=== PATIENT | male | born 1970 | race Caucasian/White ===

== ENCOUNTER 2017-10-21 09:08 | Inpatient (IN) | payer OTHER ==
[2017-10-21 09:44] VITALS: BMI 25.7
--- NOTE | 2017-10-21 09:58 | HP ---
CIWA Score - CIWA Score Nausea/Vomitin-Mild Nausea/No Vomiting Muscle Tremors: 4-Moderate,w/Arms Extend Anxiety: 4-Mod. Anxious/Guarded Agitation: 1-Slight > Activity Paroxysmal Sweats: 1-Minimal Palms Moist Orientation: 1-Uncertain about Date Tacttile Disturbances: 1-Very Mild Itch/Numbness Auditory Disturbances: 0-None Visual Disturbances: 0-None Headache: 1-Very Mild CIWA-Ar Total Score: 14 Admission ROS S - HPI Chief Complaint: I want detox, I don't want to drink anymore Allergies/Adverse Reactions: Allergies Allergy/AdvReac Type Severity Reaction Status Date / Time No Known Allergies Allergy Verified 10/21/17 10:12 History of Present Illness: 47 yo gentleman here for detox from alcohol. States he fell yesterday and was in [place] ED, xrayed and sent for detox. No seizures, does black outs. States he was in [facility] rehab for 28 days june 2017. Does not remember being here for several days in 2014. Exam Limitations: Clinical Condition - Ebola screening Have you traveled outside of the country in the last 21 days: No (N) Have you had contact with anyone from an Ebola affected area: No Have you been sick,other than usual withdrawal symptoms: No Do you have a fever: No - Review of Systems Constitutional: Loss of Appetite, Night Sweats, Changes in sleep, Weakness EENT: reports: Blurred Vision Respiratory: reports: No Symptoms reported Cardiac: reports: No Symptoms Reported GI: reports: No Symptoms Reported : reports: Frequency Musculoskeletal: reports: Back Pain, Muscle Pain Integumentary: reports: Dryness Neuro: reports: Headache, Tremors Endocrine: reports: No Symptoms Reported Hematology: reports: No Symptoms Reported Psychiatric: reports: Judgement Intact, Mood/Affect Appropiate, Anxious Other Systems: Reviewed and Negative Patient History - Patient Medical History Hx Anemia: No Hx Asthma: No Hx Chronic Obstructive Pulmonary Disease (COPD): No Hx Cancer: No Hx Cardiac Disorders: Yes (history of a fib) Hx Congestive Heart Failure: No Hx Hypertension: Yes (non adherent to medication) Hx Hypercholesterolemia: No Hx Pacemaker: No HX Cerebrovascular Accident: No Hx Seizures: No Hx Dementia: No Hx Diabetes: No Hx Gastrointestinal Disorders: No Hx Liver Disease: No Hx Genitourinary Disorders: No Hx Sexually Transmitted Disorders: No Hx Renal Disease (ESRD): No Hx Thyroid Disease: No Hx Human Immunodeficiency Virus (HIV): No Hx Hepatitis C: No Hx Depression: No (anxiety, insomnia) Hx Suicide Attempt: No Hx Bipolar Disorder: No Hx Schizophrenia: No Other Medical History: back pain, neuropathy - Patient Surgical History Past Surgical History: Yes Hx Neurologic Surgery: No Hx Cataract Extraction: No Hx Cardiac Surgery: No Hx Lung Surgery: No Hx Breast Surgery: No Hx Breast Biopsy: No Hx Abdominal Surgery: Yes (bilateral hernia age 10) Hx Appendectomy: No Hx Cholecystectomy: No Hx Genitourinary Surgery: No Hx Section: No Hx Orthopedic Surgery: Yes ([employer] [place] [facility] PROCEDURE, metal rods in back 1994) Other Surgical History: lazy eye surgery age 2 Anesthesia Reaction: No - PPD History Previous Implant?: Yes Documented Results: Negative w/proof Date: 07/30/15 PPD to be Administered?: Yes - Reproductive History Patient is a Female of Child Bearing Age (11 -55 yrs old): No (male) - Smoking Cessation Smoking history: Never smoked Have you smoked in the past 12 months: No Initiated information on smoking cessation: No - Substance & Tx. History Hx Alcohol Use: Yes Hx Substance Use: No Substance Use Type: Alcohol Hx Substance Use Treatment: Yes (detox, rehab) - Substances Abused Alcohol Route: Oral Frequency: Daily Amount used: eight 24 oz beers Age of first use: 15 Date of Last Use: 10/20/17 Family Disease History - Family Disease History Family Disease History: Heart Disease: Father (, HTN,ALCOHOLIC), Mother (, ALCOHOLIC), CA: Mother, Sister (, COLON), Other: Father, Mother, Son (two - no contact for 10 years) Admission Physical Exam S - Vital Signs Vital Signs: Vital Signs - 24 hr 10/21/17 09:39 Temperature 96.9 F L Pulse Rate 86 Respiratory 18 Rate Blood Pressure 146/83 - Physical General Appearance: Yes: Nourished, Appropriately Dressed, Moderate Distress, Anxious HEENTM: Yes: Hearing grossly Normal, Normocephalic, Normal Voice, Pharynx Normal Respiratory: Yes: Normal Breath Sounds, No Respiratory Distress Neck: Yes: No masses,lesions,Nodules, Supple Breast: Yes: Breast Exam Deferred Cardiology: Yes: Regular Rhythm, Regular Rate Abdominal: Yes: Flat, Soft Genitourinary: Yes: Frequency Back: Yes: Decreased Range of Motion, Surgical Scar Musculoskeletal: Yes: full range of Motion, Gait Steady Extremities: Yes: Normal Range of Motion, Other (mild lower extremity edema with hyperpigmentation) Neurological: Yes: Fully Oriented, Alert, Motor Strength 5/5, Normal Mood/Affect , Normal Response, Numbness Integumentary: Yes: Dry, Warm Lymphatic: Yes: Within Normal Limits - Diagnostic (1) Uncomplicated alcohol dependence Current Visit: Yes Status: Chronic Comment: . (2) History of atrial fibrillation Current Visit: Yes Status: Suspected Comment: . (3) Back pain Current Visit: Yes Status: Chronic Qualifiers: Back pain location: low back pain Chronicity: chronic Back pain laterality: bilateral Sciatica presence: without sciatica Qualified Code(s) : M54.5 - Low back pain; G89.29 - Other chronic pain; G89.29 - Other chronic pain Comment: . Cleared for Admission [facility] - Detox or Rehab [facility] Level of Care: Medically Managed Detox Regimen/Protocol: Librium [facility] Breath Alcohol Content Breath Alcohol Content: 0 Urine Drug Screen - Results Drug Screen Negative: Yes
[2017-10-21] MEDS ORDERED: LOPERAMIDE HCL 2 MG CAPSULE PO PRN (10:11)
[2017-10-21] MEDS ORDERED: MAG HYDROX/AL HYDROX/SIMETH 30 ML UNIT-DOSE CUP PO PRN (10:11)
[2017-10-21] MEDS ORDERED: ACETAMINOPHEN 325 MG TABLET (FP) PO PRN (10:11)
[2017-10-21] MEDS ORDERED: P-EPHED 60MG/TRIPROLIDI 2.5MG TABLET PO PRN (10:11)
[2017-10-21] MEDS ORDERED: MENTHOL/PHENOL 1 EACH UD MM PRN (10:11)
[2017-10-21] MEDS ORDERED: IBUPROFEN 400 MG TABLET (FP) PO PRN (10:11)
[2017-10-21] MEDS ORDERED: hydrOXYzine PAMOATE 50 MG CAPSULE (FP) PO PRN (10:11)
[2017-10-21] MEDS ORDERED: MAGNESIUM CITRATE 300 ML BOTTLE PO PRN (10:11)
[2017-10-21] MEDS ORDERED: chlordiazePOXIDE HCL 25 MG CAPSULE PO PRN (10:11)
[2017-10-21] MEDS ORDERED: guaiFENesin/D-METHORPHAN HB 10 ML UNIT-DOSE CUPS PO PRN (10:11)
[2017-10-21] MEDS ORDERED: MAGNESIUM HYDROX 2400MG/30ML ORAL SUSPENSION 30 ML CUP PO PRN (10:11)
[2017-10-21] MEDS ORDERED: chlordiazePOXIDE HCL 25 MG CAPSULE PO ONE (12:00)
[2017-10-21] MEDS: GABAPENTIN 300 MG CAPSULE (FP) PO SCH ×2 (12:57→17:43)
[2017-10-21] MEDS: METHYL SALICYLATE/MENTHOL OINT 30 GM TUBE TP SCH ×2 (13:03→23:02)
--- NOTE | 2017-10-21 15:16 | EKG ---
Test Reason : Blood Pressure : / mmHG Vent. Rate : 066 BPM Atrial Rate : 066 BPM P-R Int : 120 ms QRS Dur : 104 ms QT Int : 406 ms P-R-T Axes : 045 073 063 degrees QTc Int : 425 ms NORMAL SINUS RHYTHM WITH SINUS ARRHYTHMIA MINIMAL VOLTAGE CRITERIA FOR LVH, MAY BE NORMAL VARIANT BORDERLINE ECG NO PREVIOUS ECGS AVAILABLE Confirmed by Marbin Whitney ([id number]) on 10/21/2017 3:16:07 PM Referred By: Confirmed By:Marbin Whitney
[2017-10-21] MEDS: chlordiazePOXIDE HCL 25 MG CAPSULE PO SCH ×2 (17:43→23:02)
--- NOTE | 2017-10-21 17:51 | CONSULT ---
[facility] Psychiatric Consult - Data Date of interview: 10/21/17 Admission source: [facility] Identifying data: Pt. is a 47 year old male, , father of two, unemployed , and currently living in a homeless assisted. This is patient[facility]. Pt. admitted to for detox from alcohol dependence. Substance Abuse History: Substance & Tx. History. Hx Alcohol Use: Yes. Hx Substance Use: No. Substance Use Type: Alcohol. Hx Substance Use Treatment: Yes (detox, rehab). - Substances Abused. Alcohol. Route: Oral. Frequency : Daily. Amount used: eight 24 oz beers. Age of first use: 15. Date of Last Use: 10/20/17 Medical History: Hypertension Psychiatric History: Pt. denies h/o psychiatric hospitalizations and suicide attempts. Pt. reports seeing an outpatient psychiatrist at the assisted he currently resides in. Diagnosed unknown and states he is prescribed vistaril for sleep which patient states is ineffective and gapabentin for pain. Pt. denies suicidal and homicidal ideation. Physical/Sexual Abuse/Trauma History: Denies. Mental Status Exam - Mental Status Exam Alert and Oriented to: Time, Place Cognitive Function: Good Patient Appearance: Well Groomed Mood: Hopeful Affect: Mood Congruent Patient Behavior: Talkative, Cooperative Speech Pattern: Appropriate Voice Loudness: Normal Thought Process: Goal Oriented Thought Disorder: Not Present Hallucinations: Denies Suicidal Ideation: Denies Homicidal Ideation: Denies Insight/Judgement: Poor Sleep: Poorly Appetite: Fair Muscle strength/Tone: Normal Gait/Station: Normal Psychiatric Findings - Problem List ([place] 1, 2,3) (1) Uncomplicated alcohol dependence Current Visit: Yes Status: Acute Comment: . (2) Insomnia Current Visit: Yes Status: Acute - Initial Treatment Plan Initial Treatment Plan: Psychoeducation provided. Detoxification in progress. Ambien 10mg qhs PRN ordered. Benefits and side effects (sleep walking) discussed. Pt reports favorable effect from previously taking ambien. Verbal consent given. Will continue to monitor.
[2017-10-21 19:46] LABS: URINE APPEARANCE CLEAR; URINE BILIRUBIN NEGATIVE (NEGATIVE); URINE BLOOD NEGATIVE (NEGATIVE); URINE COLOR YELLOW; URINE GLUCOSE (UA) NEGATIVE (NEGATIVE); URINE KETONE 2+ (NEGATIVE); URINE LEUK ESTERASE NEGATIVE (NEGATIVE); URINE NITRITE NEGATIVE (NEGATIVE)
[2017-10-21 19:50] LABS: URINE PROTEIN 1+ (NEGATIVE)
[2017-10-21 19:54] LABS: URINE MUCUS FEW
[2017-10-21] MEDS: ZOLPIDEM TARTRATE 5 MG TABLET PO PRN (23:01)
[2017-10-21] MEDS: THIAMINE HCL 100 MG TABLET (FP) PO SCH (23:02)
[2017-10-22] MEDS: chlordiazePOXIDE HCL 25 MG CAPSULE PO SCH ×4 (05:28→22:37)
[2017-10-22] MEDS: GABAPENTIN 300 MG CAPSULE (FP) PO SCH ×3 (05:30→22:33)
[2017-10-22 10:25] LABS: HEMATOCRIT 39.7 % (35.4-49); HEMOGLOBIN 12.4 GM/dL (11.7-16.9); MCH 25.3 pg (25.7-33.7); MCHC 31.2 g/dl (32.0-35.9); MEAN CELL VOLUME 81.2 fl (80-96); MEAN PLT VOLUME 8.6 fl (7.5-11.1); PLATELET COUNT 151 K/MM3 (134-434); RBC 4.89 M/mm3 (4.00-5.60); RDW 17.2 % (11.9-15.9); WHITE BLOOD COUNT 4.5 K/mm3 (4.0-10.0)
[2017-10-22] MEDS: METHYL SALICYLATE/MENTHOL OINT 30 GM TUBE TP SCH ×2 (10:28→22:32)
[2017-10-22] MEDS: PRENATAL VITAMINS W/ FOLIC ACID TABLET (FP) PO SCH (10:28)
[2017-10-22] MEDS: METOPROLOL SUCCINATE 25 MG TAB.SR.24H (FP) PO SCH (10:28)
[2017-10-22 10:37] LABS: ALBUMIN 4.3 g/dl (3.4-5.0); ANION GAP 7 (8-16); BLOOD UREA NITROGEN 11 mg/dL (7-18); CALCIUM 8.9 mg/dL (8.5-10.1); CHLORIDE 96 mmol/L (98-107); CO2 31 mmol/L (21-32); GLUCOSE,RANDOM 133 mg/dL (74-106); POTASSIUM 3.7 mmol/L (3.5-5.1); SODIUM 134 mmol/L (136-145)
[2017-10-22 10:40] LABS: ALK PHOS 108 U/L (45-117); BILIRUBIN,TOTAL 1.1 mg/dL (0.2-1.0); CREATININE 0.9 mg/dL (0.7-1.3); SGOT/AST 55 U/L (15-37); SGPT/ALT 36 U/L (12-78); TOT PROT 8.2 g/dl (6.4-8.2)
--- NOTE | 2017-10-22 15:19 | PN ---
[facility] CIWA - CIWA Score Nausea/Vomitin-No Nausea/No Vomiting Muscle Tremors: 4-Moderate,w/Arms Extend Anxiety: 4-Mod. Anxious/Guarded Agitation: 4-Moderately Restless Paroxysmal Sweats: 3 Orientation: 0-Oriented Tacttile Disturbances: 1-Very Mild Itch/Numbness Auditory Disturbances: 0-None Visual Disturbances: 0-None Headache: 0-None Present CIWA-Ar Total Score: 16 S Progress Note (SOAP) Subjective: Tremor, back pain, anxious, restless. Patient requesting to be discharged on stating he has an ophthalmology appt on 10/24 in the afternoon and has PCP appt on 10/25. He is willing to adjust his librium protocol. Objective: 10/22/17 15:18 Last Vital Signs Temp Pulse Resp BP Pulse Ox 96.3 F L 87 20 159/91 10/22/17 13:17 10/22/17 13:17 10/22/17 13:17 10/22/17 13:17 Laboratory Tests 10/21/17 10/22/17 10/22/17 19:45 07:40 07:40 WBC 4.5 RBC 4.89 D Hgb 12.4 Hct 39.7 MCV 81.2 MCH 25.3 L D MCHC 31.2 L RDW 17.2 H D Plt Count 151 D MPV 8.6 Sodium 134 L Potassium 3.7 Chloride 96 L Carbon Dioxide 31 Anion Gap 7 L BUN 11 Creatinine 0.9 D Creat Clearance w eGFR > 60 Random Glucose 133 H D Calcium 8.9 Total Bilirubin 1.1 H D AST 55 H D ALT 36 Alkaline Phosphatase 108 D Total Protein 8.2 D Albumin 4.3 Urine Color Yellow Urine Appearance Clear Urine pH 7.0 Ur Specific [place] 1.023 Urine Protein 1+ H Urine Glucose (UA) Negative Urine Ketones 2+ H Urine Blood Negative Urine Nitrite Negative Urine Bilirubin Negative Urine Urobilinogen 2.0 Ur Leukocyte Esterase Negative Urine WBC (Auto) 1 Urine RBC (Auto) <1 Urine Mucus Few RPR Titer 10/22/17 07:40 WBC RBC Hgb Hct MCV MCH MCHC RDW Plt Count MPV Sodium Potassium Chloride Carbon Dioxide Anion Gap BUN Creatinine Creat Clearance w eGFR Random Glucose Calcium Total Bilirubin AST ALT Alkaline Phosphatase Total Protein Albumin Urine Color Urine Appearance Urine pH Ur Specific [place] Urine Protein Urine Glucose (UA) Urine Ketones Urine Blood Urine Nitrite Urine Bilirubin Urine Urobilinogen Ur Leukocyte Esterase Urine WBC (Auto) Urine RBC (Auto) Urine Mucus RPR Titer Nonreactive Labs noted: serum glucose 133 Assessment: 10/22/17 15:19 Withdrawal symptoms Noted with hyperglycemia Plan: Continue detox Hyperglycemia: repeat fasting glucose, send HbA1c
[2017-10-22] MEDS: THIAMINE HCL 100 MG TABLET (FP) PO SCH (22:33)
[2017-10-22] MEDS: ZOLPIDEM TARTRATE 5 MG TABLET PO PRN (22:36)
[2017-10-22] MEDS: LIDOCAINE PATCH REMOVAL MC SCH (22:44)
[2017-10-23] MEDS: chlordiazePOXIDE HCL 25 MG CAPSULE PO SCH (06:17)
[2017-10-23] MEDS: GABAPENTIN 300 MG CAPSULE (FP) PO SCH ×3 (06:18→22:37)
[2017-10-23] MEDS ORDERED: LIDOCAINE 5% TOPICAL PATCH TP SCH (10:00)
[2017-10-23] MEDS: METHYL SALICYLATE/MENTHOL OINT 30 GM TUBE TP SCH ×2 (10:55→22:36)
[2017-10-23] MEDS: PRENATAL VITAMINS W/ FOLIC ACID TABLET (FP) PO SCH (10:55)
[2017-10-23] MEDS: chlordiazePOXIDE 5 MG CAPSULE PO SCH ×3 (10:57→22:36)
[2017-10-23] MEDS: METOPROLOL SUCCINATE 25 MG TAB.SR.24H (FP) PO SCH (10:57)
--- NOTE | 2017-10-23 12:32 | PN ---
[facility] CIWA - CIWA Score Nausea/Vomitin-No Nausea/No Vomiting Muscle Tremors: 2 Anxiety: 4-Mod. Anxious/Guarded Agitation: 4-Moderately Restless Paroxysmal Sweats: 1-Minimal Palms Moist Orientation: 0-Oriented Tacttile Disturbances: 2-Mild Itch/Numbness/Burn Auditory Disturbances: 2-Mild Harshness/Frighten Visual Disturbances: 0-None Headache: 0-None Present CIWA-Ar Total Score: 15 S Progress Note (SOAP) Subjective: Interrupted Sleep, Body Aches, Anxious. Objective: PT. A & O X 3, OBSERVED AMBULATING ON UNIT. NO ACUTE DISTRESS. 10/23/17 12:30 Vital Signs Temperature 97.1 F L 10/23/17 09:36 Pulse Rate 86 10/23/17 09:36 Respiratory Rate 18 10/23/17 09:36 Blood Pressure 149/97 10/23/17 09:36 O2 Sat by Pulse Oximetry (%) Laboratory Tests 10/21/17 10/22/17 10/22/17 19:45 07:40 07:40 WBC 4.5 RBC 4.89 D Hgb 12.4 Hct 39.7 MCV 81.2 MCH 25.3 L D MCHC 31.2 L RDW 17.2 H D Plt Count 151 D MPV 8.6 Sodium 134 L Potassium 3.7 Chloride 96 L Carbon Dioxide 31 Anion Gap 7 L BUN 11 Creatinine 0.9 D Creat Clearance w eGFR > 60 Random Glucose 133 H D Fasting Glucose Hemoglobin A1c % Calcium 8.9 Total Bilirubin 1.1 H D AST 55 H D ALT 36 Alkaline Phosphatase 108 D Total Protein 8.2 D Albumin 4.3 Urine Color Yellow Urine Appearance Clear Urine pH 7.0 Ur Specific [place] 1.023 Urine Protein 1+ H Urine Glucose (UA) Negative Urine Ketones 2+ H Urine Blood Negative Urine Nitrite Negative Urine Bilirubin Negative Urine Urobilinogen 2.0 Ur Leukocyte Esterase Negative Urine WBC (Auto) 1 Urine RBC (Auto) <1 Urine Mucus Few RPR Titer 10/22/17 10/23/17 10/23/17 07:40 07:00 07:00 WBC RBC Hgb Hct MCV MCH MCHC RDW Plt Count MPV Sodium Potassium Chloride Carbon Dioxide Anion Gap BUN Creatinine Creat Clearance w eGFR Random Glucose Fasting Glucose 88 Hemoglobin A1c % 5.4 Calcium Total Bilirubin AST ALT Alkaline Phosphatase Total Protein Albumin Urine Color Urine Appearance Urine pH Ur Specific [place] Urine Protein Urine Glucose (UA) Urine Ketones Urine Blood Urine Nitrite Urine Bilirubin Urine Urobilinogen Ur Leukocyte Esterase Urine WBC (Auto) Urine RBC (Auto) Urine Mucus RPR Titer Nonreactive LABS NOTED. Assessment: 10/23/17 12:30 WITHDRAWAL SYMPTOMS. Plan: CONTINUE DETOX.
[2017-10-23] MEDS ORDERED: chlordiazePOXIDE 5 MG CAPSULE PO SCH (17:00)
[2017-10-23] MEDS ORDERED: IBUPROFEN 400 MG TABLET (FP) PO PRN (19:17)
--- NOTE | 2017-10-23 19:21 | PN ---
[facility] Progress Note Note: received nurse called that the patient refuses librium 15 mg x 1 dose today
[2017-10-23] MEDS: THIAMINE HCL 100 MG TABLET (FP) PO SCH (22:35)
[2017-10-23] MEDS: ZOLPIDEM TARTRATE 5 MG TABLET PO PRN (22:35)
[2017-10-23] MEDS: LIDOCAINE PATCH REMOVAL MC SCH (22:36)
[2017-10-24] MEDS ORDERED: chlordiazePOXIDE HCL 10 MG CAPSULE PO SCH ×2 (05:00→17:00)
[2017-10-24] MEDS: GABAPENTIN 300 MG CAPSULE (FP) PO SCH (06:29)
[2017-10-24 09:17] VITALS: BP 151/81; PULSE 103; TEMP 96.2
--- NOTE | 2017-10-24 14:10 | DS ---
[facility] Detox Discharge Summary Admission Date: 10/21/17 Discharge Date: 10/24/17 - History Present History: Alcohol Dependence Additional Comments: PATIENT GOING TO [facility] ([place], [place] FOR AFTERCARE. PATIENT ALSO ADVISED TO FOLLOW-UP AFTER DISCHARGE FROM DETOX WITH [employer]UNDROM[employer] WORKER DR. Johnny JEFFREY ([facility]) FOR GENERAL MEDICAL ASSESSMENT AND FOR HISTORY OF HTN AND A-FIB. PATIENT WAS DISCHARGED FROM DETOX UNIT IN STABLE MEDICAL CONDITION. Pertinent Past History: HTN, History of A-Fib, Anxiety, Back Pain, Insomnia. - Physical Exam Results Vital Signs: Vital Signs Temperature 96.2 F L 10/24/17 09:16 Pulse Rate 103 H 10/24/17 09:16 Respiratory Rate 18 10/24/17 09:16 Blood Pressure 151/81 10/24/17 09:16 O2 Sat by Pulse Oximetry (%) Pertinent Admission Physical Exam Findings: WITHDRAWAL SYMPTOMS. Laboratory Tests 10/21/17 10/22/17 10/22/17 19:45 07:40 07:40 WBC 4.5 RBC 4.89 D Hgb 12.4 Hct 39.7 MCV 81.2 MCH 25.3 L D MCHC 31.2 L RDW 17.2 H D Plt Count 151 D MPV 8.6 Sodium 134 L Potassium 3.7 Chloride 96 L Carbon Dioxide 31 Anion Gap 7 L BUN 11 Creatinine 0.9 D Creat Clearance w eGFR > 60 Random Glucose 133 H D Fasting Glucose Hemoglobin A1c % Calcium 8.9 Total Bilirubin 1.1 H D AST 55 H D ALT 36 Alkaline Phosphatase 108 D Total Protein 8.2 D Albumin 4.3 Urine Color Yellow Urine Appearance Clear Urine pH 7.0 Ur Specific [place] 1.023 Urine Protein 1+ H Urine Glucose (UA) Negative Urine Ketones 2+ H Urine Blood Negative Urine Nitrite Negative Urine Bilirubin Negative Urine Urobilinogen 2.0 Ur Leukocyte Esterase Negative Urine WBC (Auto) 1 Urine RBC (Auto) <1 Urine Mucus Few RPR Titer 10/22/17 10/23/17 10/23/17 07:40 07:00 07:00 WBC RBC Hgb Hct MCV MCH MCHC RDW Plt Count MPV Sodium Potassium Chloride Carbon Dioxide Anion Gap BUN Creatinine Creat Clearance w eGFR Random Glucose Fasting Glucose 88 Hemoglobin A1c % 5.4 Calcium Total Bilirubin AST ALT Alkaline Phosphatase Total Protein Albumin Urine Color Urine Appearance Urine pH Ur Specific [place] Urine Protein Urine Glucose (UA) Urine Ketones Urine Blood Urine Nitrite Urine Bilirubin Urine Urobilinogen Ur Leukocyte Esterase Urine WBC (Auto) Urine RBC (Auto) Urine Mucus RPR Titer Nonreactive LABS NOTED. - Treatment Hospital Course: Detox Protocol Followed, Detoxed Safely, Responded well, Discharged Condition Good Patient has Accepted a Rehab Referral to: PATIENT GOING TO [facility] ([place], [place]). - Medication Discharge Medications: Ambulatory Orders Gabapentin [Neurontin -] 300 mg PO Q8H 07/28/15 Metoprolol Succinate [Toprol XL -] 25 mg PO DAILY 07/28/15 - Diagnosis (1) Uncomplicated alcohol dependence Status: Acute (2) Back pain Status: Chronic Qualifiers: Back pain location: low back pain Chronicity: chronic Back pain laterality: bilateral Sciatica presence: without sciatica Qualified Code(s) : M54.5 - Low back pain; G89.29 - Other chronic pain; G89.29 - Other chronic pain (3) History of atrial fibrillation Status: Suspected (4) Insomnia Status: Acute Qualifiers: Insomnia type: unspecified Qualified Code(s): G47.00 - Insomnia, unspecified - AMA Did Patient Leave Against Medical Advice: No
== END 2017-10-24 09:05 | disposition home or self-care (01) | DRG 775 ==
LOC: YASAS 09:08 → Y3N 11:00
PROVIDERS: ADMIT Internal Medicine; ATTEND Internal Medicine
PROC: HZ2ZZZZ Detoxification Services for Substance Abuse Treatment (ICD-10-PCS; principal; 2017-10-21)
DX: F10.230 Alcohol dependence with withdrawal, uncomplicated (principal); I10 Essential (primary) hypertension; G47.00 Insomnia, unspecified; M54.5 Low back pain; G89.29 Other chronic pain; R73.9 Hyperglycemia, unspecified; Z86.79 Personal history of other diseases of the circulatory system; Z91.14 Patient's other noncompliance with medication regimen
CPT/HCPCS: 36415; 80053; 81003; 81015; 82947; 83036; 85027; 86593; 93005; 93010

== ENCOUNTER 2017-11-29 11:19 | Inpatient (IN) | payer OTHER ==
[2017-11-29 11:53] VITALS: BMI 26.7
--- NOTE | 2017-11-29 14:09 | HP ---
CIWA Score - CIWA Score Nausea/Vomitin Muscle Tremors: 3 Anxiety: 3 Agitation: 3 Paroxysmal Sweats: 2 Orientation: 0-Oriented Tacttile Disturbances: 2-Mild Itch/Numbness/Burn Auditory Disturbances: 2-Mild Harshness/Frighten Visual Disturbances: 2-Mild Sensitivity Headache: 2-Mild CIWA-Ar Total Score: 22 Admission ROS [facility] - HPI Chief Complaint: I NEED HELP TO STOP DRINKING ALCOHOL Allergies/Adverse Reactions: Allergies Allergy/AdvReac Type Severity Reaction Status Date / Time No Known Allergies Allergy Verified 11/29/17 14:04 History of Present Illness: THIS 47 YEARS OLD MALE WITH ALCOHOL DEPENDENCE,SEEKING DETOX,WITHDRAWAL SYMPTOM, LAST TREATMENT [facility] 10/21/17 TO HISTORY OF BACK SURGERY HISTORY OF PERIPHERAL NEUROPATHY NO SIGNIFICANT PERIOD OF SOBRIETY - Ebola screening Have you traveled outside of the country in the last 21 days: No Have you had contact with anyone from an Ebola affected area: No Have you been sick,other than usual withdrawal symptoms: No - Review of Systems Constitutional: Loss of Appetite, Malaise, Night Sweats, Changes in sleep, Weakness EENT: reports: Nose Congestion, Other (C ORRECTIVE SURGERY LEFT EYE AT AGE OF 2 YEAR) Cardiac: reports: No Symptoms Reported GI: reports: Nausea, Vomiting, Abdominal cramping : reports: No Symptoms Reported Musculoskeletal: reports: Muscle Pain Integumentary: reports: Dryness Neuro: reports: Tremors Endocrine: reports: No Symptoms Reported Hematology: reports: No Symptoms Reported Psychiatric: reports: Judgement Intact, Mood/Affect Appropiate, Orientated x3, Anxious, Depressed (INSOMNIA) Patient History - Patient Medical History Hx Anemia: No Hx Asthma: No Hx Chronic Obstructive Pulmonary Disease (COPD): No Hx Cancer: No Hx Cardiac Disorders: Yes (history of a fib) Hx Congestive Heart Failure: No Hx Hypertension: Yes (non adherent to medication) Hx Hypercholesterolemia: No Hx Pacemaker: No HX Cerebrovascular Accident: No Hx Seizures: No Hx Dementia: No Hx Diabetes: No Hx Gastrointestinal Disorders: No Hx Liver Disease: No Hx Genitourinary Disorders: No Hx Sexually Transmitted Disorders: No Hx Renal Disease (ESRD): No Hx Thyroid Disease: No Hx Human Immunodeficiency Virus (HIV): No (04/17 LAST NEGATIVE) Hx Hepatitis C: No Hx Depression: No (anxiety, insomnia) Hx Suicide Attempt: No Hx Bipolar Disorder: No Hx Schizophrenia: No Other Medical History: NO SUICIDAL,NO HOMICIDAL,PERIPHERAL NEUROPATHY - Patient Surgical History Past Surgical History: Yes Hx Neurologic Surgery: No Hx Cataract Extraction: No Hx Cardiac Surgery: No Hx Lung Surgery: No Hx Breast Surgery: No Hx Breast Biopsy: No Hx Abdominal Surgery: Yes (bilateral hernia age 10) Hx Appendectomy: No Hx Cholecystectomy: No Hx Genitourinary Surgery: No Hx Section: No Hx Orthopedic Surgery: Yes ([employer] [place] [employer] PROCEDURE, metal rods in back 1994) Other Surgical History: lazy eye surgery age 2 Anesthesia Reaction: No - PPD History Previous Implant?: Yes Documented Results: Negative w/proof Date: 10/23/17 Results: 0 MM PPD to be Administered?: No - Smoking Cessation Smoking history: Never smoked Have you smoked in the past 12 months: No - Substance & Tx. History Hx Alcohol Use: Yes Hx Substance Use: No Substance Use Type: Alcohol Hx Substance Use Treatment: Yes ([facility] 10/19) - Substances Abused Alcohol Route: Oral Frequency: Daily Amount used: 3-4 25 oz beers Age of first use: 15 Date of Last Use: 11/29/17 Family Disease History - Family Disease History Family Disease History: Heart Disease: Father (, HTN,ALCOHOLIC), Mother (, ALCOHOLIC), CA: Mother, Sister (, COLON), Other: Father, Mother, Son (two - no contact for 10 years) Admission Physical Exam S - Vital Signs Vital Signs: Vital Signs - 24 hr 11/29/17 11:51 Temperature 98.0 F Pulse Rate 95 H Respiratory 18 Rate Blood Pressure 136/85 - Physical General Appearance: Yes: Moderate Distress, Tremorous, Irritable, Sweating, Anxious HEENTM: Yes: Within Normal Limits, GUERA, Pharynx Normal Respiratory: Yes: Within Normal Limits Neck: Yes: Within Normal Limits, Supple, Trachea in good position Breast: Yes: Within Normal Limits Cardiology: Yes: Within Normal Limits, Regular Rhythm, Regular Rate, S1, S2 Abdominal: Yes: Within Normal Limits, Normal Bowel Sounds, Non Tender, Soft Genitourinary: Yes: Within Normal Limits Back: Yes: Muscle Spasm Musculoskeletal: Yes: Back pain, Muscle Pain Extremities: Yes: Within Normal Limits, Normal Range of Motion, Tremors Neurological: Yes: 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 II-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 NML intact, Fully Oriented, Alert, Motor Strength 5/5 Integumentary: Yes: Dry Lymphatic: Yes: Within Normal Limits - Diagnostic (1) Alcohol dependence with uncomplicated withdrawal Current Visit: Yes Status: Acute (2) Alcohol dependence with uncomplicated intoxication Current Visit: Yes Status: Acute (3) Insomnia Current Visit: No Status: Acute Qualifiers: Insomnia type: unspecified Qualified Code(s): G47.00 - Insomnia, unspecified (4) Back pain Current Visit: No Status: Chronic Qualifiers: Back pain location: low back pain Chronicity: chronic Back pain laterality: bilateral Sciatica presence: without sciatica Qualified Code(s) : M54.5 - Low back pain; G89.29 - Other chronic pain; G89.29 - Other chronic pain Comment: . (5) Scoliosis Current Visit: No Status: Chronic Comment: . (6) History of atrial fibrillation Current Visit: No Status: Suspected Comment: . (7) Anxiety and depression Current Visit: Yes Status: Acute (8) Hypertension Current Visit: Yes Status: Acute (9) H/O inguinal hernia repair Current Visit: Yes Status: Acute (10) Peripheral neuropathy Current Visit: Yes Status: Acute Cleared for Admission [facility] - Detox or Rehab [facility] Level of Care: Medically Managed Detox Regimen/Protocol: Librium [facility] Breath Alcohol Content Breath Alcohol Content: 0.289 Urine Drug Screen - Results Drug Screen Negative: Yes
[2017-11-29] MEDS ORDERED: chlordiazePOXIDE HCL 25 MG CAPSULE PO PRN (14:33)
[2017-11-29] MEDS ORDERED: IBUPROFEN 400 MG TABLET (FP) PO PRN (14:33)
[2017-11-29] MEDS ORDERED: MAGNESIUM CITRATE 300 ML BOTTLE PO PRN (14:33)
[2017-11-29] MEDS ORDERED: MAGNESIUM HYDROX 2400MG/30ML ORAL SUSPENSION 30 ML CUP PO PRN (14:33)
[2017-11-29] MEDS ORDERED: MENTHOL/PHENOL 1 EACH UD MM PRN (14:33)
[2017-11-29] MEDS ORDERED: MAG HYDROX/AL HYDROX/SIMETH 30 ML UNIT-DOSE CUP PO PRN (14:33)
[2017-11-29] MEDS ORDERED: ACETAMINOPHEN 325 MG TABLET (FP) PO PRN (14:33)
[2017-11-29] MEDS ORDERED: guaiFENesin/D-METHORPHAN HB 10 ML UNIT-DOSE CUPS PO PRN (14:33)
[2017-11-29] MEDS ORDERED: hydrOXYzine PAMOATE 50 MG CAPSULE (FP) PO PRN (14:33)
[2017-11-29] MEDS ORDERED: P-EPHED 60MG/TRIPROLIDI 2.5MG TABLET PO PRN (14:33)
[2017-11-29] MEDS ORDERED: LOPERAMIDE HCL 2 MG CAPSULE PO PRN (14:33)
[2017-11-29] MEDS ORDERED: PATIENT'S OWN MEDICATION (NON-FORMULARY) (Gabapentin [Gabapentin] 600 MG) PO SCH (14:45)
[2017-11-29] MEDS ORDERED: chlordiazePOXIDE HCL 25 MG CAPSULE PO ONE (14:55)
--- NOTE | 2017-11-29 15:41 | CONSULT ---
[facility] Psychiatric Consult - Data Date of interview: 11/29/17 Admission source: [facility] Identifying data: Readmission to [facility] for this 47 y/o male seeking detox treatment on for alcohol dependence.Patient is ,a father of two,homeless (residential),unemployed and supported on Public Assistance. Substance Abuse History: Confirmed by patient in this interview.Details in current [facility] report as follows: Smoking history: Never smoked. Have you smoked in the past 12 months: No. - Substance & Tx. History. Hx Alcohol Use: Yes. Hx Substance Use: No. Substance Use Type: Alcohol. Hx Substance Use Treatment : Yes ([facility] 10/19). - Substances Abused. Alcohol. Route: Oral. Frequency : Daily. Amount used: 3-4 25 oz beers. Age of first use: 15. Date of Last Use : 11/29/17 Medical History: Peripheral neuropathy,history of atrial fibrillation, orthosurgery for scoliosis (hardware in place) and a remote history of inguinal herniorraphy. Psychiatric History: No reported history of psychiatric hospitalizations.Patient is currently seen on a regular basis by a psychiatrist at [facility] for medication management.Diagnosed with Bipolar Disorder and prescribed risperdal and gabapentin (dose nor recalled).Mr Naidu expresses his disagreement." I don't have a mental illness and I never understood why I should be taking psychiatric medications." Patient denies history of suicide attempts. Physical/Sexual Abuse/Trauma History: Patient denies. Additional Comment: Drug Screen is negative. Mental Status Exam - Mental Status Exam Alert and Oriented to: Time, Place, Person Cognitive Function: Good Patient Appearance: Unkempt, Disheveled Mood: Nervous, Withdrawn, Anxious Affect: Mood Congruent Patient Behavior: Fatigued, Cooperative Speech Pattern: Clear Voice Loudness: Normal Thought Process: Goal Oriented Thought Disorder: Not Present Hallucinations: Denies Suicidal Ideation: Denies Homicidal Ideation: Denies Insight/Judgement: Poor Sleep: Poorly (wants ambien at bedtime), Difficulty falling asleep Appetite: Good Muscle strength/Tone: Normal Gait/Station: Normal Psychiatric Findings - Problem List ([place] 1, 2,3) (1) Alcohol dependence with uncomplicated withdrawal Current Visit: Yes Status: Acute (2) Substance induced mood disorder Current Visit: Yes Status: Acute (3) Insomnia Current Visit: Yes Status: Acute Qualifiers: Insomnia type: unspecified Qualified Code(s): G47.00 - Insomnia, unspecified - Initial Treatment Plan Initial Treatment Plan: Records revisited.Sleep hygiene.Psychoeducation.Detoxification in progress.Patient declines to take psychotropic medications with the exception of ambien + ETOH detox protocol.Made aware of risks taken by abstaining from atypical agents and mood stabilizers.Ambien 10 mg po hs prn.Patient is informed of risk of parasomnias.Consent (verbal) given for ambien.Observation.
[2017-11-29] MEDS: chlordiazePOXIDE HCL 25 MG CAPSULE PO SCH ×2 (17:21→22:03)
[2017-11-29] MEDS: THIAMINE HCL 100 MG TABLET (FP) PO SCH (22:03)
[2017-11-29] MEDS: ZOLPIDEM TARTRATE 10 MG TABLET (PARK CARE ONLY) PO PRN (22:03)
[2017-11-29] MEDS: GABAPENTIN 300 MG CAPSULE (FP) PO SCH (22:04)
[2017-11-29 23:18] LABS: URINE APPEARANCE CLEAR; URINE BILIRUBIN NEGATIVE (NEGATIVE); URINE BLOOD NEGATIVE (NEGATIVE); URINE COLOR STRAW; URINE GLUCOSE (UA) NEGATIVE (NEGATIVE); URINE KETONE NEGATIVE (NEGATIVE); URINE LEUK ESTERASE NEGATIVE (NEGATIVE); URINE NITRITE NEGATIVE (NEGATIVE); URINE PROTEIN NEGATIVE (NEGATIVE); URINE UROBILINOGEN NEGATIVE mg/dL (0.2-1.0)
[2017-11-30] MEDS: chlordiazePOXIDE HCL 25 MG CAPSULE PO SCH ×4 (05:45→22:07)
[2017-11-30] MEDS: GABAPENTIN 300 MG CAPSULE (FP) PO SCH ×2 (05:45→22:05)
[2017-11-30 10:22] LABS: HEMATOCRIT 42.2 % (35.4-49); HEMOGLOBIN 13.5 GM/dL (11.7-16.9); MCH 25.9 pg (25.7-33.7); MEAN CELL VOLUME 80.9 fl (80-96); MEAN PLT VOLUME 8.4 fl (7.5-11.1); PLATELET COUNT 172 K/MM3 (134-434); RBC 5.21 M/mm3 (4.00-5.60); RDW 18.6 % (11.9-15.9); WHITE BLOOD COUNT 5.3 K/mm3 (4.0-10.0)
--- NOTE | 2017-11-30 10:29 | PN ---
[facility] CIWA - CIWA Score Nausea/Vomitin-No Nausea/No Vomiting Muscle Tremors: 4-Moderate,w/Arms Extend Anxiety: 4-Mod. Anxious/Guarded Agitation: 4-Moderately Restless Paroxysmal Sweats: 1-Minimal Palms Moist Orientation: 0-Oriented Tacttile Disturbances: 3-Moderate Itch/Numb/Burn Auditory Disturbances: 0-None Visual Disturbances: 0-None Headache: 0-None Present CIWA-Ar Total Score: 16 BHS Progress Note (SOAP) Subjective: ANXIETY,IRRITABILITY, SWEATS,TREMORS, CHRONIC UPPER/LOWER BACK PAIN, HX NEUROPATHY. Objective: 11/30/17 10:28 Vital Signs Temperature 97 F L 11/30/17 06:45 Pulse Rate 96 H 11/30/17 06:45 Respiratory Rate 18 11/30/17 06:45 Blood Pressure 143/89 11/30/17 06:45 O2 Sat by Pulse Oximetry (%) Laboratory Last Values WBC 5.3 K/mm3 (4.0-10.0) 11/30/17 07:30 RBC 5.21 M/mm3 (4.00-5.60) 11/30/17 07:30 Hgb 13.5 GM/dL (11.7-16.9) 11/30/17 07:30 Hct 42.2 % (35.4-49) 11/30/17 07:30 MCV 80.9 fl (80-96) 11/30/17 07:30 MCH 25.9 pg (25.7-33.7) 11/30/17 07:30 MCHC 32.0 g/dl (32.0-35.9) 11/30/17 07:30 RDW 18.6 % (11.9-15.9) H 11/30/17 07:30 Plt Count 172 K/MM3 (134-434) 11/30/17 07:30 MPV 8.4 fl (7.5-11.1) 11/30/17 07:30 Urine Color Straw 11/29/17 20:00 Urine Appearance Clear 11/29/17 20:00 Urine pH 6.0 (5.0-8.0) 11/29/17 20:00 Ur Specific [place] 1.004 (1.001-1.035) 11/29/17 20:00 Urine Protein Negative (NEGATIVE) 11/29/17 20:00 Urine Glucose (UA) Negative (NEGATIVE) 11/29/17 20:00 Urine Ketones Negative (NEGATIVE) 11/29/17 20:00 Urine Blood Negative (NEGATIVE) 11/29/17 20:00 Urine Nitrite Negative (NEGATIVE) 11/29/17 20:00 Urine Bilirubin Negative (NEGATIVE) 11/29/17 20:00 Urine Urobilinogen Negative mg/dL (0.2-1.0) 11/29/17 20:00 Ur Leukocyte Esterase Negative (NEGATIVE) 11/29/17 20:00 LABS NOTED OTHER LABS PENDING Assessment: 11/30/17 10:29 WITHDRAWAL SX Plan: CONTINUE DETOX
[2017-11-30] MEDS: PRENATAL VITAMINS W/ FOLIC ACID TABLET (FP) PO SCH (10:33)
[2017-11-30 11:03] LABS: CHLORIDE 99 mmol/L (98-107); POTASSIUM 3.9 mmol/L (3.5-5.1); SODIUM 136 mmol/L (136-145)
[2017-11-30 11:17] LABS: ALBUMIN 4.4 g/dl (3.4-5.0); ALK PHOS 112 U/L (45-117); ANION GAP 7 (8-16); BILIRUBIN,TOTAL 1.4 mg/dL (0.2-1.0); BLOOD UREA NITROGEN 8 mg/dL (7-18); CALCIUM 8.8 mg/dL (8.5-10.1); CO2 30 mmol/L (21-32); CREATININE 0.8 mg/dL (0.7-1.3); GLUCOSE,RANDOM 111 mg/dL (74-106); SGOT/AST 48 U/L (15-37); SGPT/ALT 31 U/L (12-78)
--- NOTE | 2017-11-30 11:44 | EKG ---
Test Reason : Blood Pressure : / mmHG Vent. Rate : 072 BPM Atrial Rate : 072 BPM P-R Int : 138 ms QRS Dur : 102 ms QT Int : 390 ms P-R-T Axes : 042 071 067 degrees QTc Int : 427 ms NORMAL SINUS RHYTHM MINIMAL VOLTAGE CRITERIA FOR LVH, MAY BE NORMAL VARIANT BORDERLINE ECG WHEN COMPARED WITH ECG OF 21-OCT-2017 14:05, NO SIGNIFICANT CHANGE WAS FOUND Confirmed by MÓNICA MOSQUEDA, DWAINE ([id number]) on 11/30/2017 11:44:05 AM Referred By: Confirmed By:DWAINE SALES MD
[2017-11-30] MEDS: LIDOCAINE 5% TOPICAL PATCH TP SCH (19:01)
[2017-11-30] MEDS: THIAMINE HCL 100 MG TABLET (FP) PO SCH (22:04)
[2017-11-30] MEDS: AMITRIPTYLINE HCL 25 MG TABLET (FP) PO SCH (22:05)
[2017-11-30] MEDS: ZOLPIDEM TARTRATE 10 MG TABLET (PARK CARE ONLY) PO PRN (22:05)
[2017-11-30] MEDS: LIDOCAINE PATCH REMOVAL MC SCH (22:08)
[2017-12-01] MEDS: chlordiazePOXIDE HCL 25 MG CAPSULE PO SCH ×2 (05:55→10:25)
[2017-12-01] MEDS: GABAPENTIN 300 MG CAPSULE (FP) PO SCH ×2 (08:23→22:08)
[2017-12-01] MEDS: PRENATAL VITAMINS W/ FOLIC ACID TABLET (FP) PO SCH (10:25)
[2017-12-01] MEDS: LIDOCAINE 5% TOPICAL PATCH TP SCH (10:25)
--- NOTE | 2017-12-01 11:09 | PN ---
[facility] CIWA - CIWA Score Nausea/Vomitin-No Nausea/No Vomiting Muscle Tremors: 5 Anxiety: 5 Agitation: 4-Moderately Restless Paroxysmal Sweats: 1-Minimal Palms Moist Orientation: 0-Oriented Tacttile Disturbances: 3-Moderate Itch/Numb/Burn Auditory Disturbances: 0-None Visual Disturbances: 0-None Headache: 0-None Present CIWA-Ar Total Score: 18 BHS Progress Note (SOAP) Subjective: ANXIETY,RESTLESSNESS,TREMORS,INTERMITTENT SLEEP. PT REQUESTING FOR CANE. Objective: 12/01/17 11:08 Vital Signs 12/01/17 12/01/17 12/01/17 04:16 06:08 09:35 Temperature 97.6 F 96.2 F L Pulse Rate 61 115 H Respiratory 18 18 20 Rate Blood Pressure 126/77 139/94 Laboratory Last Values WBC 5.3 K/mm3 (4.0-10.0) 11/30/17 07:30 RBC 5.21 M/mm3 (4.00-5.60) 11/30/17 07:30 Hgb 13.5 GM/dL (11.7-16.9) 11/30/17 07:30 Hct 42.2 % (35.4-49) 11/30/17 07:30 MCV 80.9 fl (80-96) 11/30/17 07:30 MCH 25.9 pg (25.7-33.7) 11/30/17 07:30 MCHC 32.0 g/dl (32.0-35.9) 11/30/17 07:30 RDW 18.6 % (11.9-15.9) H 11/30/17 07:30 Plt Count 172 K/MM3 (134-434) 11/30/17 07:30 MPV 8.4 fl (7.5-11.1) 11/30/17 07:30 Sodium 136 mmol/L (136-145) 11/30/17 07:30 Potassium 3.9 mmol/L (3.5-5.1) 11/30/17 07:30 Chloride 99 mmol/L (98-107) 11/30/17 07:30 Carbon Dioxide 30 mmol/L (21-32) 11/30/17 07:30 Anion Gap 7 (8-16) L 11/30/17 07:30 BUN 8 mg/dL (7-18) D 11/30/17 07:30 Creatinine 0.8 mg/dL (0.7-1.3) 11/30/17 07:30 Creat Clearance w eGFR > 60 (>60) 11/30/17 07:30 Random Glucose 111 mg/dL (74-106) H 11/30/17 07:30 Calcium 8.8 mg/dL (8.5-10.1) 11/30/17 07:30 Total Bilirubin 1.4 mg/dL (0.2-1.0) H D 11/30/17 07:30 AST 48 U/L (15-37) H 11/30/17 07:30 ALT 31 U/L (12-78) 11/30/17 07:30 Alkaline Phosphatase 112 U/L (45-117) 11/30/17 07:30 Total Protein 8.0 g/dl (6.4-8.2) 11/30/17 07:30 Albumin 4.4 g/dl (3.4-5.0) 11/30/17 07:30 Urine Color Straw 11/29/17 20:00 Urine Appearance Clear 11/29/17 20:00 Urine pH 6.0 (5.0-8.0) 11/29/17 20:00 Ur Specific [place] 1.004 (1.001-1.035) 11/29/17 20:00 Urine Protein Negative (NEGATIVE) 11/29/17 20:00 Urine Glucose (UA) Negative (NEGATIVE) 11/29/17 20:00 Urine Ketones Negative (NEGATIVE) 11/29/17 20:00 Urine Blood Negative (NEGATIVE) 11/29/17 20:00 Urine Nitrite Negative (NEGATIVE) 11/29/17 20:00 Urine Bilirubin Negative (NEGATIVE) 11/29/17 20:00 Urine Urobilinogen Negative mg/dL (0.2-1.0) 11/29/17 20:00 Ur Leukocyte Esterase Negative (NEGATIVE) 11/29/17 20:00 RPR Titer Nonreactive (NONREACTIVE) 11/30/17 07:30 Assessment: 12/01/17 11:08 WITHDRAWAL SX Plan: CONTINUE DETOX
[2017-12-01] MEDS: chlordiazePOXIDE 5 MG CAPSULE PO SCH ×2 (17:33→22:07)
[2017-12-01] MEDS: THIAMINE HCL 100 MG TABLET (FP) PO SCH (22:07)
[2017-12-01] MEDS: ZOLPIDEM TARTRATE 10 MG TABLET (PARK CARE ONLY) PO PRN (22:08)
[2017-12-01] MEDS: AMITRIPTYLINE HCL 25 MG TABLET (FP) PO SCH (22:08)
[2017-12-01] MEDS: LIDOCAINE PATCH REMOVAL MC SCH (22:09)
[2017-12-02] MEDS: chlordiazePOXIDE 5 MG CAPSULE PO SCH ×2 (06:06→10:52)
[2017-12-02] MEDS ORDERED: cloNIDine HCL 0.1 MG TABLET PO ONE (07:22)
[2017-12-02] MEDS: GABAPENTIN 300 MG CAPSULE (FP) PO SCH ×2 (07:44→20:16)
[2017-12-02] MEDS: PRENATAL VITAMINS W/ FOLIC ACID TABLET (FP) PO SCH (09:55)
[2017-12-02] MEDS: LIDOCAINE 5% TOPICAL PATCH TP SCH (10:52)
--- NOTE | 2017-12-02 15:50 | PN ---
[facility] Progress Note (SOAP) Subjective: Body Aches, Anxious. Objective: PATIENT A & O X 3, OBSERVED AMBULATING ON UNIT. NO ACUTE DISTRESS. PATIENT DENIES CHEST PAIN, SOB, AND DIZZINESS. 12/02/17 15:47 Vital Signs Temperature 96.7 F L 12/02/17 14:13 Pulse Rate 79 12/02/17 14:13 Respiratory Rate 18 12/02/17 14:13 Blood Pressure 141/87 12/02/17 14:13 O2 Sat by Pulse Oximetry (%) Laboratory Tests 11/29/17 11/30/17 11/30/17 20:00 07:30 07:30 WBC 5.3 RBC 5.21 Hgb 13.5 Hct 42.2 MCV 80.9 MCH 25.9 MCHC 32.0 RDW 18.6 H Plt Count 172 MPV 8.4 Sodium 136 Potassium 3.9 Chloride 99 Carbon Dioxide 30 Anion Gap 7 L BUN 8 D Creatinine 0.8 Creat Clearance w eGFR > 60 Random Glucose 111 H Calcium 8.8 Total Bilirubin 1.4 H D AST 48 H ALT 31 Alkaline Phosphatase 112 Total Protein 8.0 Albumin 4.4 Urine Color Straw Urine Appearance Clear Urine pH 6.0 Ur Specific [place] 1.004 Urine Protein Negative Urine Glucose (UA) Negative Urine Ketones Negative Urine Blood Negative Urine Nitrite Negative Urine Bilirubin Negative Urine Urobilinogen Negative Ur Leukocyte Esterase Negative RPR Titer 11/30/17 07:30 WBC RBC Hgb Hct MCV MCH MCHC RDW Plt Count MPV Sodium Potassium Chloride Carbon Dioxide Anion Gap BUN Creatinine Creat Clearance w eGFR Random Glucose Calcium Total Bilirubin AST ALT Alkaline Phosphatase Total Protein Albumin Urine Color Urine Appearance Urine pH Ur Specific [place] Urine Protein Urine Glucose (UA) Urine Ketones Urine Blood Urine Nitrite Urine Bilirubin Urine Urobilinogen Ur Leukocyte Esterase RPR Titer Nonreactive LABS NOTED. 12/02/17 15:49 Assessment: 12/02/17 15:48 WITHDRAWAL SYMPTOMS. Plan: CONTINUE DETOX.
[2017-12-02] MEDS: chlordiazePOXIDE HCL 10 MG CAPSULE PO SCH ×2 (17:08→22:14)
[2017-12-02] MEDS: ZOLPIDEM TARTRATE 10 MG TABLET (PARK CARE ONLY) PO PRN (21:50)
[2017-12-02] MEDS: LIDOCAINE PATCH REMOVAL MC SCH (22:14)
[2017-12-02] MEDS: THIAMINE HCL 100 MG TABLET (FP) PO SCH (22:14)
[2017-12-02] MEDS: AMITRIPTYLINE HCL 25 MG TABLET (FP) PO SCH (22:16)
[2017-12-03] MEDS: chlordiazePOXIDE HCL 10 MG CAPSULE PO SCH (06:21)
[2017-12-03 06:29] VITALS: BP 127/79; PULSE 71; TEMP 96.8
[2017-12-03] MEDS: GABAPENTIN 300 MG CAPSULE (FP) PO SCH (09:07)
--- NOTE | 2017-12-03 12:13 | DS ---
[facility] Detox Discharge Summary Admission Date: 11/29/17 - History Present History: Alcohol Dependence Pertinent Past History: A Fib Back pain - Physical Exam Results Vital Signs: Vital Signs Temperature 96.8 F L 12/03/17 06:28 Pulse Rate 71 12/03/17 06:28 Respiratory Rate 18 12/03/17 06:28 Blood Pressure 127/79 12/03/17 06:28 O2 Sat by Pulse Oximetry (%) Pertinent Admission Physical Exam Findings: Withdrawal symptoms Laboratory Tests 11/29/17 11/30/17 11/30/17 20:00 07:30 07:30 WBC 5.3 RBC 5.21 Hgb 13.5 Hct 42.2 MCV 80.9 MCH 25.9 MCHC 32.0 RDW 18.6 H Plt Count 172 MPV 8.4 Sodium 136 Potassium 3.9 Chloride 99 Carbon Dioxide 30 Anion Gap 7 L BUN 8 D Creatinine 0.8 Creat Clearance w eGFR > 60 Random Glucose 111 H Calcium 8.8 Total Bilirubin 1.4 H D AST 48 H ALT 31 Alkaline Phosphatase 112 Total Protein 8.0 Albumin 4.4 Urine Color Straw Urine Appearance Clear Urine pH 6.0 Ur Specific [place] 1.004 Urine Protein Negative Urine Glucose (UA) Negative Urine Ketones Negative Urine Blood Negative Urine Nitrite Negative Urine Bilirubin Negative Urine Urobilinogen Negative Ur Leukocyte Esterase Negative RPR Titer 11/30/17 07:30 WBC RBC Hgb Hct MCV MCH MCHC RDW Plt Count MPV Sodium Potassium Chloride Carbon Dioxide Anion Gap BUN Creatinine Creat Clearance w eGFR Random Glucose Calcium Total Bilirubin AST ALT Alkaline Phosphatase Total Protein Albumin Urine Color Urine Appearance Urine pH Ur Specific [place] Urine Protein Urine Glucose (UA) Urine Ketones Urine Blood Urine Nitrite Urine Bilirubin Urine Urobilinogen Ur Leukocyte Esterase RPR Titer Nonreactive Labs noted - Treatment Hospital Course: Detox Protocol Followed, Detoxed Safely, Responded well, Discharged Condition Good - Medication Discharge Medications: Ambulatory Orders Gabapentin 600 mg PO BID 11/29/17 Multivitamin [One Daily] 1 each PO DAILY 11/29/17 - Diagnosis (1) Alcohol dependence with uncomplicated withdrawal Status: Acute (2) Anxiety and depression Status: Chronic (3) Insomnia Status: Acute Qualifiers: Insomnia type: unspecified Qualified Code(s): G47.00 - Insomnia, unspecified (4) Back pain Status: Chronic Qualifiers: Back pain location: low back pain Chronicity: chronic Back pain laterality: bilateral Sciatica presence: without sciatica Qualified Code(s) : M54.5 - Low back pain; G89.29 - Other chronic pain; G89.29 - Other chronic pain (5) Hypertension Status: Chronic Qualifiers: Hypertension type: essential hypertension Qualified Code(s): I10 - Essential (primary) hypertension (6) History of atrial fibrillation Status: Chronic - AMA Did Patient Leave Against Medical Advice: No (Follow up with your PCP within 1- 2 weeks )
== END 2017-12-03 09:00 | disposition home or self-care (01) | DRG 775 ==
LOC: YASAS 11:19 → Y3N 14:32
PROVIDERS: ADMIT Internal Medicine; ATTEND Internal Medicine
PROC: HZ2ZZZZ Detoxification Services for Substance Abuse Treatment (ICD-10-PCS; principal; 2017-11-29)
DX: F10.230 Alcohol dependence with withdrawal, uncomplicated (principal); F41.8 Other specified anxiety disorders; I10 Essential (primary) hypertension; G47.00 Insomnia, unspecified; M54.5 Low back pain; G89.29 Other chronic pain; M41.9 Scoliosis, unspecified; G62.9 Polyneuropathy, unspecified; Z99.89 Dependence on other enabling machines and devices; Z91.14 Patient's other noncompliance with medication regimen; Z86.79 Personal history of other diseases of the circulatory system
CPT/HCPCS: 36415; 80053; 81003; 85027; 86593; 93005; 93010; J0735